=== PATIENT | male | born 1955 | race Caucasian/White ===

== ENCOUNTER 2020-06-04 09:18 | Outpatient (CLI) | payer MEDICARE ==
--- NOTE | 2020-06-04 11:01 | MRI ---
MR the lumbar spine without contrast INDICATION: History of intervertebral disc disorder and radiculopathy COMPARISON: Lumbar spinal radiographs dated August 29, 2015 TECHNIQUE: Multiplanar multisequence MR images were obtained of lumbar spine without IV contrast. FINDINGS: Bone marrow: There is type III Modic endplate degenerative change at L2-3. No suspicious marrow signa l abnormality is evident. Distal spinal cord and conus: Normal. The conus seen to terminate at T12-L1. Visualized retroperitoneum and paraspinal soft tissues: Normal. 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 L5-S1: There is moderate to severe right and mild left facet joint degenerative change. There is a br oad-based bulge. There is prominent central canal narrowing due to epidural lipomatosis at this level. No appreciable neural foraminal narrowing is demonstrated. L4-5: There is a broad-based disc bulge with a superimposed right paracentral disc protrusion the bro ad-based bulge and facet hypertrophy induces moderate right and mild left neural foraminal narrowing. Prominence of the epidural fat and ligamentum flavum in addition to the disc degenerative and facet osteoarthritic change at this level induces severe central canal narrowing. L3-4: There is a broad-based disc osteophyte complex with facet hypertrophy. There is prominence of t he epidural fat inducing severe central canal narrowing. There is [id number] bilateral neural foraminal narrowing. L2-3: There is a disc osteophyte complex with facet hypertrophy and epidural lipomatosis. There is mo derate to severe left and mild right neural foraminal narrowing. There is severe central canal narrowing. L1-L2: There is a broad-based bulge with facet hypertrophy and epidural lipomatosis inducing moderate to severe central canal narrowing with moderate bilateral neural foraminal narrowing T12-L1: There is a broad-based disc bulge with facet hypertrophy inducing mild bilateral neural lesley inal narrowing. IMPRESSION: 1. Multilevel prominent central canal narrowing due to disc degenerative disease, facet hypertrophy, congenital narrowing of the spinal canal and epidural lipomatosis. This is most pronounced from L1-2 through L5-S1. 2. Multilevel neural foraminal narrowing at T12-L1 through L4-5 as above.
== END 2020-06-04 09:19 | disposition home or self-care (01) ==
LOC: BICMRI 09:18
PROVIDERS: ATTEND Specialist
DX: M51.17 Intervertebral disc disorders with radiculopathy, lumbosacral region (principal); M48.061 Spinal stenosis, lumbar region without neurogenic claudication; M48.07 Spinal stenosis, lumbosacral region; M51.16 Intervertebral disc disorders with radiculopathy, lumbar region; M48.05 Spinal stenosis, thoracolumbar region
CPT/HCPCS: 72148

== ENCOUNTER 2020-09-20 09:05 | Outpatient (CLI) | payer MEDICARE ==
[2020-09-20 09:48] LABS: Hemoglobin 14.8 g/dL (13.5-17.5); Mean Corpuscular HGB CONC 31.6 g/dL (32.0-36.0); Mean Corpuscular Hemoglobin 26.7 pg (27.0-33.0); Mean Corpuscular Volume 84.5 fl (81.2-95.1); Platelet Count 322 10x3/uL (150-450); RBC Distribution Width 12.6 % (11.5-14.5); Red Blood Cell (RBC) Count 5.55 10x6/uL (4.32-5.72); White Blood Cell (WBC) Count 8.4 10x3/uL (3.5-10.5)
[2020-09-20 10:05] LABS: Anion Gap 13 mmol/L (10-20); BUN (Urea Nitrogen) 13 mg/dL (8.4-25.7); Calc. Creatinine Clearance 0 mL/min (70-130); Carbon Dioxide 29 mmol/L (23-31); Chloride 100 mmol/L (98-107); Glucose 93 mg/dL (80-115); Potassium 5.2 mmol/L (3.5-5.1); Sodium 137 mmol/L (136-145)
[2020-09-20 10:33] LABS: PTT 26.1 sec (22.0-33.0); Prothrombin Time 10.7 sec (9.5-12.1)
[2020-09-20 17:59] LABS: SARS-CoV-2 PCR by NAA Not Detected (NotDetected)
== END 2020-09-20 09:06 | disposition home or self-care (01) ==
LOC: LABBT 09:05
PROVIDERS: ATTEND Surgery
DX: Z01.818 Encounter for other preprocedural examination (principal); M51.16 Intervertebral disc disorders with radiculopathy, lumbar region; M48.062 Spinal stenosis, lumbar region with neurogenic claudication; Z20.822 Contact with and (suspected) exposure to COVID-19
CPT/HCPCS: 80048; 85027; 85610; 85730; 93005; U0003; U0005; 87635; 93010

== ENCOUNTER 2020-09-25 08:26 | Outpatient (CLI) | payer MEDICARE ==
[2020-09-25 16:21] LABS: SARS-CoV-2 PCR by NAA Not Detected (NotDetected)
== END 2020-09-25 08:27 | disposition home or self-care (01) ==
LOC: LABBT 08:26
PROVIDERS: ATTEND Surgery
DX: Z01.812 Encounter for preprocedural laboratory examination (principal); M51.16 Intervertebral disc disorders with radiculopathy, lumbar region; M48.062 Spinal stenosis, lumbar region with neurogenic claudication; Z20.822 Contact with and (suspected) exposure to COVID-19
CPT/HCPCS: U0003; U0005; 87635

== ENCOUNTER 2020-09-27 05:47 | Inpatient (IN) | payer MEDICARE ==
[2020-09-24 15:24] VITALS: BMI 28.1
[2020-09-27] MEDS ORDERED: Thrombin 5000 UNITS/5 ML VIAL ONE ×2 (06:35→07:00)
[2020-09-27] MEDS ORDERED: Fentanyl 100 MCG/2 ML VIAL ONE ×4 (06:39→14:13)
[2020-09-27] MEDS ORDERED: Rocuronium Bromide 10 MG/ML (10ML VIAL) ONE (07:39)
[2020-09-27] MEDS ORDERED: Dexamethasone 20 MG/5 ML VIAL ONE (07:39)
[2020-09-27] MEDS ORDERED: PROPOFOL 200 MG/20 ML VIAL ONE (07:39)
[2020-09-27] MEDS ORDERED: Ondansetron PF 4 MG/2 ML Vial ONE (07:39)
[2020-09-27] MEDS ORDERED: Lidocaine 1% PF 5 ML VIAL ONE (07:39)
[2020-09-27] MEDS ORDERED: SUGAMMADEX SODIUM 200 MG/2 ML VIAL ONE (10:29)
[2020-09-27] MEDS ORDERED: Bisacodyl 10 MG SUPP PR PRN (10:43)
[2020-09-27] MEDS ORDERED: Milk Of Magnesia 30 ML UDCUP PO PRN (10:43)
[2020-09-27] MEDS ORDERED: Acetaminophen 325 MG TAB PO PRN (10:43)
[2020-09-27] MEDS ORDERED: Mag-Al 1200 mg/1200 mg/30 ML UDCUP PO PRN (10:43)
[2020-09-27] MEDS ORDERED: Acetaminophen/Codeine 30-300mg Tablet PO PRN (10:43)
[2020-09-27] MEDS ORDERED: traZODone HCl 50 MG TAB PO PRN (10:46)
[2020-09-27] MEDS ORDERED: hydrALAZINE 20 MG/ML VIAL SLOW IVP PRN (10:46)
[2020-09-27] MEDS ORDERED: HYDROmorphone 2 MG/ML VIAL ONE (10:53)
[2020-09-27] MEDS ORDERED: Morphine Sulfate 2 MG/ML SYRINGE SLOW IVP PRN (10:55)
[2020-09-27] MEDS ORDERED: Promethazine HCl 25 MG/ML VIAL SLOW IVP PRN (10:55)
[2020-09-27] MEDS ORDERED: Meperidine HCl/PF 25 MG/ML VIAL SLOW IVP PRN (10:55)
[2020-09-27] MEDS ORDERED: Ketorolac Tromethamine 30 MG/ML VIAL IVP PRN (10:55)
[2020-09-27] MEDS ORDERED: HYDROmorphone 2 MG/ML VIAL SLOW IVP PRN (10:55)
[2020-09-27] MEDS ORDERED: Promethazine HCl 25 MG/ML VIAL IM PRN (10:55)
[2020-09-27] MEDS ORDERED: Ondansetron HCl/PF 4 MG/2 ML Vial IVP PRN (10:55)
[2020-09-27] MEDS ORDERED: Ketorolac Tromethamine 30 MG/ML VIAL ONE (10:57)
[2020-09-27] MEDS: CEFAZOLIN 2 GM in Premix Bag 1 BAG IVPB SCH ×2 (14:55→21:47)
[2020-09-27] MEDS: Sodium Chloride 0.9% 1,000 ML IV SCH (15:04)
[2020-09-27] MEDS: HYDROcodone/Acetaminophen 7.5/325 mg Tablet PO PRN ×2 (15:53→20:55)
[2020-09-27] MEDS: Morphine 2 MG/ML VIAL SLOW IVP PRN (18:42)
[2020-09-28] MEDS: Sodium Chloride 0.9% 1,000 ML IV SCH ×2 (00:32→13:26)
[2020-09-28] MEDS: Morphine 2 MG/ML VIAL SLOW IVP PRN ×2 (04:12→07:07)
[2020-09-28] MEDS: HYDROcodone/Acetaminophen 7.5/325 mg Tablet PO PRN ×2 (09:43→14:01)
[2020-09-28] MEDS: Allopurinol 300 MG TAB PO SCH (09:44)
[2020-09-28] MEDS: Lisinopril/Hydrochlorothiazide 20 mg/12.5 mg Tablet PO SCH (09:44)
[2020-09-28] MEDS: Diazepam 5 MG TAB PO PRN ×2 (09:49→18:44)
[2020-09-28] MEDS: traMADol HCl 50 MG TAB PO PRN (18:48)
[2020-09-28] MEDS ORDERED: Atorvastatin Calcium 20 MG TAB PO SCH (21:00)
[2020-09-29] MEDS: traMADol HCl 50 MG TAB PO PRN ×2 (01:18→13:34)
[2020-09-29] MEDS: Sodium Chloride 0.9% 1,000 ML IV SCH (07:38)
[2020-09-29] MEDS: HYDROcodone/Acetaminophen 7.5/325 mg Tablet PO PRN ×2 (07:51→13:33)
[2020-09-29] MEDS: Diazepam 5 MG TAB PO PRN (07:51)
[2020-09-29] MEDS: Lisinopril/Hydrochlorothiazide 20 mg/12.5 mg Tablet PO SCH (07:52)
[2020-09-29] MEDS: Allopurinol 300 MG TAB PO SCH (07:53)
[2020-09-29 11:30] VITALS: BP 102/62; TEMP 98
== END 2020-09-29 14:38 | disposition home or self-care (01) | DRG 520 ==
LOC: SDC 05:47 → SJJU 10:43 → SDC 09-28 21:25 → SJJU 09-28 21:26
PROVIDERS: ADMIT Surgery; ATTEND Surgery
PROC: 0SB20ZZ Excision of Lumbar Vertebral Disc, Open Approach (ICD-10-PCS; principal; 2020-09-27)
DX: M48.062 Spinal stenosis, lumbar region with neurogenic claudication (principal); M51.16 Intervertebral disc disorders with radiculopathy, lumbar region
CPT/HCPCS: 76000; J0690; J1100; J1170; J1885; J2270; J2405; J2704; J3010; J3370; J3490; U0003; U0005